=== PATIENT | female | born 1950 | race Caucasian/White ===

== ENCOUNTER 2019-10-23 09:06 | Emergency (ER) | payer MEDICARE, OTHER, SELFPAY ==
[2019-10-23 11:07] VITALS: BP 138/96; PULSE 67; RESP 16; TEMP 36.4; O2SAT 96
--- NOTE | 2019-10-23 12:01 | ED.GENADULT ---
HPI - General Adult General Chief complaint: Eye Problems Stated complaint: r eye irritation Source: patient Mode of arrival: ambulatory Limitations: no limitations History of Present Illness HPI narrative: Patient presents with right eye injected and red with drainage started approximately 2 to 3 days ago currently does not wear contacts no foreign body sensation it is red and non itchy has tried [id number] antihistamine eyedrops with no relief. Currently there is no nasal discharge no sinus congestion or pressure no shortness of breath no fever or chills. Onset (ago): day(s) Location: eyes and left Severity: mild Related Data Home Medications Medication Instructions Recorded Confirmed amlodipine 5 mg PO DAILY 10/23/19 10/23/19 Allergies Allergy/AdvReac Type Severity Reaction Status Date / Time meperidine Allergy Severe NAUSEA AND Verified 06/29/17 06:30 VOMITING lisinopril Allergy Unknown Verified 09/23/17 11:32 Review of Systems Review of Systems: All systems reviewed & are unremarkable except as noted in HPI and below PMFSH Past Medical History Medical History Essential (primary) hypertension Sleep apnea, unspecified Urge incontinence Family History Family History Sibling Family history of thyroid disease Father Acute myocardial infarction Mother Family history of Alzheimer's disease Social History Social History Smoking status: Former smoker Smoking end date: 08/17/82 Alcohol intake: current Exam Const: General: no acute distress and alert Orientation/consciousness: patient oriented x3 HENMT: Head: normal to inspection Eyes: Conjunctivae: conjunctivae normal ( Right conjunctiva is injected with yellow discharge) Pupils: Equal, round and reactive pupils present Neck: Neck: normal visual inspection Chest: Chest palpation & inspection: normal inspection of the chest Resp: Effort & Inspection: normal respiratory effort Cardio: Rate: regular rate Rhythm: regular rhythm GI: Inspection: distended Skin: General skin exam: normal color Rashes: no rashes Neuro: General: patient oriented x3, moves all extremities and no meningeal signs Extrem: General: normal to inspection Psych: Mental Status: mental status grossly normal Course Vital Signs Vital signs: Vital Signs Temperature 36.4 C 10/23/19 11:07 Pulse Rate 67 10/23/19 11:07 Respiratory Rate 16 10/23/19 11:07 Blood Pressure 138/96 H 10/23/19 11:07 Pulse Oximetry 96 10/23/19 11:07 Temperature 36.4 C 10/23/19 11:07 Pulse Rate 67 10/23/19 11:07 Respiratory Rate 16 10/23/19 11:07 Blood Pressure 138/96 H 10/23/19 11:07 Pulse Oximetry 96 10/23/19 11:07 Medical Decision Making Vital Signs Vital Signs: Vital Signs Temperature 36.4 C 10/23/19 11:07 Pulse Rate 67 10/23/19 11:07 Respiratory Rate 16 10/23/19 11:07 Blood Pressure 138/96 H 10/23/19 11:07 Pulse Oximetry 96 10/23/19 11:07 Temperature 36.4 C 10/23/19 11:07 Pulse Rate 67 10/23/19 11:07 Respiratory Rate 16 10/23/19 11:07 Blood Pressure 138/96 H 10/23/19 11:07 Pulse Oximetry 96 10/23/19 11:07 Critical Care Time Critical Care Time Critical Care Time: No Discharge Plan Discharge Clinical Impression: Bacterial conjunctivitis Patient Disposition: Home, Self-Care Condition: Stable Instructions: Antibiotic Form, Conjunctivitis (ED) Prescriptions: New ciprofloxacin HCl 0.3 % drops 2 drop RIGHTEYE TID 7 Days Qty: 5 RF: 0 No Action amlodipine 5 mg tablet 5 mg PO DAILY RF: 0 Follow-up/Referrals: Dax Gagnon MD [Primary Care Provider] - Time of Disposition: 12:12
[2019-10-23] MEDS: NEOMYCIN/POLYMYXIN/DEXAMETH OP SUSP 5 ML BTL 1 DROP (12:24)
[2019-10-23 12:26] VITALS: RESP 16
--- NOTE | 2019-10-23 17:08 | PC.NURSE ---
RX CALLED TO [facility] IN [place] FOR PATIENT CONVENIENCE
== END 2019-10-23 12:28 | disposition home or self-care (01) ==
PROVIDERS: Emergency Provider Emergency Medicine; PCP Family Medicine
DX: H10.89 Other conjunctivitis (principal); I10 Essential (primary) hypertension; Z87.891 Personal history of nicotine dependence
CPT/HCPCS: 99283; A9270

== ENCOUNTER 2022-03-05 09:19 | Outpatient (CLI) | payer MEDICARE, SELFPAY ==
[2022-03-05 09:52] LABS: Basophils Absolute Auto 0.1 K/mm3 (0.0-0.1); Basophils Percent Auto 1.2 % (0.2-1.2); Eosinophils Absolute Auto 0.2 K/mm3 (0-0.3); Eosinophils Percent Auto 4.2 % (0-4.4); Hematocrit 44.3 % (37.0-47.0); Immature Granulocyte Absolute 0.02 K/mm3 (0.00-0.031); Immature Granulocyte Percent A 0.5 % (0-0.5); Lymphocytes Absolute Auto 1.17 K/mm3 (0.9-3.2); Lymphocytes Percent Auto 27.3 % (18.3-44.2); Mean Corpuscular HGB Conc 31.6 g/dl (32-36); Mean Corpuscular Hemoglobin 28.6 pg (26-34); Mean Corpuscular Volume 90.6 fl (80-100); Mean Platelet Volume 9.7 fl (7.4-10.4); Monocytes Absolute Auto 0.5 K/mm3 (0.1-0.6); Monocytes Percent Auto 12.1 % (2.6-8.5); Neutrophils Absolute Auto 2.3 K/mm3 (1.3-6.7); Neutrophils Percent Auto 54.7 % (45.5-73.1); Platelet Count Result 309 k/mm3 (150-375); Red Blood Count 4.89 M/mm3 (4.2-5.4); Red Cell Distribution Width 12.8 % (11.5-14.5); White Blood Count 4.3 K/mm3 (4.5-10.0)
[2022-03-05 10:00] LABS: Alanine Aminotransferase 28 U/L (6-35); Albumin Level 4.4 g/dL (3.5-5.1); Alkaline Phosphatase 84 U/L (38-126); Anion Gap 5 mmol/L (8-16); Aspartate Amino Transferase 29 U/L (14-36); Bilirubin,Total 0.7 mg/dL (0.2-1.3); Blood Urea Nitrogen 15 mg/dL (7-17); Calcium 9.2 mg/dL (8.4-10.2); Carbon Dioxide 28 mmol/L (22-30); Chloride 106 mmol/L (98-107); Cholesterol 257 mg/dL (0-200); Estimated Glomerular Filt Rate 54; Glucose 92 mg/dL (65-110); HDL Direct 62 mg/dL; Potassium 4.5 mmol/L (3.4-5.0); Sodium 139 mmol/L (137-145); Triglycerides 73 mg/dL (<150)
[2022-03-05 10:11] LABS: LDL Cholesterol Direct 135 mg/dL
== END 2022-03-05 09:20 | disposition home or self-care (01) ==
PROVIDERS: PCP Family Medicine; Visit Provider Physician Assistant
DX: Z79.899 Other long term (current) drug therapy (principal)
CPT/HCPCS: 36415; 80053; 80061; 84443; 85025

== ENCOUNTER 2022-12-03 08:46 | Outpatient (CLI) | payer MEDICARE, SELFPAY ==
--- NOTE | ~2022-12-03 | DEXA_ITS ---
Bone Density Report Name: JUS CARDOZO Age: 72 Sex: Female Ethnicity: White Date of : 1950 Indication: postmenopausal; screening for osteoporosis; height loss; hysterectomy; Referring Provider: JUSTYN VERGARA Study: Bone densitometry was performed. Exam Date: December 03, 2022 Accession number: [id number] Bone Density: Region BMD T-score Z-score Classification AP Spine(L1-L4) 0.822 -2.0 0.3 Osteopenia Femoral Neck (Left) 0.710 -1.3 0.8 Osteopenia Total Hip (Left) 0.865 -0.6 1.1 Normal Femoral Neck (Right) 0.744 -0.9 1.1 Normal Total Hip (Right) 0.820 -1.0 0.8 Normal Total Hip Mean 0.842 -0.8 1.0 Normal World Health Organization criteria for BMD impression classify patients as: Normal (T-score at or above -1.0), Osteopenia (T-score between -1.0 and -2.5), or Osteoporosis (T-score at or below -2.5). 10-year Fracture Risk(1): Major Osteoporotic Fracture 10% Hip Fracture 1.7% Reported Risk Factors: [place] (), Neck BMD=0.710, BMI=26.8 (1) FRAX(R) Version 3.08. Fracture probability calculated for an untreated patient. Fracture probability may be lower if the patient has received treatment. Clinical Information Provided by Patient: Has the following medical conditions: Hysterectomy Patient maximum height was 62 Menopause Age: 48 Drinks caffeinated beverages Onset of menses at age 12 Number of children 4 Impression: The patient has low bone mass, based on the Total Spine T-score. The patient has an estimated ten-year risk of hip fracture of 1.7% and an estimated ten-year risk of major fracture of 10%, based on the WHO FRAX algorithm. Discussion: BONE DENSITY IS LOW AT ONE OR MORE SKELETAL SITES. This patient's lowest T-score is low at one or more skeletal sites. It meets the World Health Organization's (WHO) criteria for ?low bone mass? (T-score between -1.0 and -2.5). The patient's 10-year risk of fracture as calculated by FRAX is less than the threshold where pharmacological therapy is recommended by the National Osteoporosis Foundation (NOF). However, all treatment decisions require clinical judgment and consideration of individual patient factors, including patient preferences, comorbidities, previous drug use, risk factors not captured in the FRAX model (e.g., frailty, falls, vitamin D deficiency, increased bone turnover, interval significant decline in bone density) and possible under or overestimation of fracture risk by FRAX. The patient should follow a healthful lifestyle (good nutrition with adequate calcium and vitamin D, and appropriate weight-bearing exercise). Follow-Up: Consider repeating this study in 2 to 3 years to reassess this patient's status, or sooner if there is some new clinical indication. Reported by: [facility] on 12/03/2022 9:16:00 A
--- NOTE | ~2022-12-03 | MM_ITS ---
EXAMINATION: [facility] HISTORY: Screening mammogram TECHNIQUE: Craniocaudal and mediolateral oblique 3-D tomosynthesis images were obtained and synthetic 2-D images were generated. CAD analysis was submitted and interpreted. COMPARISON: 09/09/2017, 09/18/2015, 08/02/2013, 07/26/2013 BREAST PARENCHYMAL COMPOSITION: There are scattered areas of fibroglandular density. FINDINGS: No suspicious mass, calcification, or architectural distortion are identified in either destini ast to suggest malignancy. There has been no suspicious interval change. IMPRESSION: 1. No mammographic evidence of malignancy. 2. Recommend routine screening mammography in one year. BI-RADS Category 1: Negative Reviewed, dictated and finalized at location A.
== END 2022-12-03 08:47 | disposition home or self-care (01) ==
PROVIDERS: PCP Family Medicine; Visit Provider Family Medicine
DX: Z12.31 Encounter for screening mammogram for malignant neoplasm of breast (principal); Z78.0 Asymptomatic menopausal state; M85.89 Other specified disorders of bone density and structure, multiple sites
CPT/HCPCS: 77063; 77067; 77080

== ENCOUNTER 2024-10-21 11:39 | Outpatient (CLI) | payer MEDICARE, OTHER, SELFPAY ==
--- OUTSIDE RECORDS SUMMARY | 2024-10-21 12:30 | XMS_ITS | Clinical Summary ---
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 Gender Identity Not on file Sexual Orientation Not on file Plan of Treatment Health Maintenance Due Date Last Done Comments Depression Screening 1950 Fall Risk Assessment 1950 Hepatitis C Screening 1950 Osteoporosis Screening-Bone Density Scan 1950 Hepatitis B Screening 1966 Well Visit 65+ 2013 DTaP/Tdap/Td Vaccine (1 - Tdap) 09/24/2017 8 Covid-19 Vaccine (2023-2 5 season) 2024 01/19/2022, 07/31/2021, 10/25/2020, Additional history exists Influenza Vaccine (#1) 2024 06/01/2020 Zoster Vaccine Completed 09/02/2018, 06/03/2018 Pneumococcal vaccine 65+ Completed 06/28/2020, 02/2018 Insurance * Guarantor: Franny Duran Account Type Relation to Patient Date of Phone Billing Address Personal/Family Self 1950 [id number] [place] [address] MEDICARE COMMERCIAL GENERIC Care Teams Roadway Designer Relationship Specialty Start Date End Date Dax Gagnon MD PCP - General Family Medicine 02/13/22
--- OUTSIDE RECORDS SUMMARY | 2024-10-21 12:30 | XMS_ITS | Referral Summary ---
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
[2024-10-21 14:24] LABS: Alanine Aminotransferase 23 U/L (6-35); Albumin Level 4.4 g/dL (3.5-5.1); Alkaline Phosphatase 99 U/L (38-126); Anion Gap 9 mmol/L (4-12); Aspartate Amino Transferase 42 U/L (14-36); Bilirubin,Total 0.5 mg/dL (0.2-1.3); Blood Urea Nitrogen 20 mg/dL (7-17); Calcium 9.3 mg/dL (8.4-10.2); Carbon Dioxide 27 mmol/L (22-30); Chloride 104 mmol/L (98-107); Estimated Glomerular Filt Rate > 60; Glucose 95 mg/dL (65-110); Potassium 4.3 mmol/L (3.4-5.0); Sodium 140 mmol/L (137-145)
[2024-10-21 15:21] LABS: Vitamin D 25 Hydroxy 52.1 ng/mL
== END 2024-10-21 11:40 | disposition home or self-care (01) ==
LOC: ANHGOSHLAB 11:40
PROVIDERS: PCP Family Medicine; Visit Provider Family Medicine
DX: M85.80 Other specified disorders of bone density and structure, unspecified site (principal); I10 Essential (primary) hypertension; Z78.0 Asymptomatic menopausal state
CPT/HCPCS: 36415; 80053; 82306

== ENCOUNTER 2024-11-10 13:40 | Emergency (ER) | payer MEDICARE, OTHER, SELFPAY ==
--- NOTE | ~2024-11-10 | XR_ITS ---
EXAMINATION: XR chest 2V 11/10/2024 14:03 INDICATION: Cough and shortness of breath PROCEDURE: 2 view chest COMPARISON: No prior studies for comparison. FINDINGS: The lungs are clear. The cardiomediastinal silhouette is within normal limits. There are no pleural effusions. There is no pneumothorax suspected. IMPRESSION: 1: NO ACUTE CARDIOPULMONARY DISEASE. Reviewed, dictated and finalized at location A.
--- NOTE | 2024-11-10 13:49 | ED_ITS ---
HPI - URI/Sore Throat General Chief Complaint: Upper Respiratory Infection Stated Complaint: CONGESTION/FEVER/HEADACHE Time Seen by Provider: 11/10/24 13:49 Source: patient Mode of arrival: ambulatory Limitations: no limitations History of Present Illness HPI Narrative: Franny is a 74-year-old female patient presenting to the clinic today with complaints of fever, headache, cough, and congestion x5 days. States she has felt feverish thinks she is around 102.5F. Is coughing up some yellow phlegm. She is a former smoker. No history of asthma or COPD. Related Data Allergies Allergy/AdvReac Type Severity Reaction Status Date / Time meperidine Allergy Severe NAUSEA AND Verified 11/10/24 13:57 VOMITING lisinopril Allergy Unknown unknown Verified 11/10/24 13:57 Review of Systems Review of Systems: Pertinent positives per HPI. Patient denies any fever, chills, rash, headache, visual changes, dizziness, chest pain, palpitations, nausea, vomiting, diarrhea, constipation, abdominal pain, or any urinary issues. PMFSH Past Medical History Medical History Hepatitis C antibody test negative (07/02/20) Essential (primary) hypertension Sleep apnea, unspecified Urge incontinence Surgical History Surgical History History of hysterectomy for benign disease Family History Family History Sibling Family history of thyroid disease Father Acute myocardial infarction Mother Family history of Alzheimer's disease Social History Social History Smoking status: Former smoker Smoking end date: 08/17/82 Alcohol intake: current Comments At the time of my signature, I reviewed and agree with the nursing past medical, surgical, social, and family history. There is no relevant family history pertinent to the patient complaint. Exam Narrative: General: Well-developed, well nourished, in no apparent distress Head: Normocephalic, atraumatic Eyes: Pupils equally round and reactive to light bilaterally, EOM intact, sclera and conjunctive clear, no discharge, lids normal Ears: TMs intact and clear, ear canals clear, no drainage, grossly hearing normal. Nose: Nares patent, clear nasal discharge, no inflammation, no sinus tenderness. Mouth: Oral pharynx without lesions or masses, good dentition, MMM. Neck: Supple, trachea midline, no enlargement of anterior or posterior cervical nodes, no thyroid masses or goiter palpable. Cardio: Regular rate and rhythm, s1 and s2 normal, no murmur appreciated. Resp: Diminished in the bases otherwise clear, no rhonchi, rales, wheezing or rubs Course Course Emergency Course: Portions of this record may have been created with voice recognition software. Level of Care: Express Care Visit Vital Signs Vital signs: Vital Signs Temperature 36.2 C L 11/10/24 13:51 Pulse Rate 96 11/10/24 13:51 Respiratory Rate 18 11/10/24 13:51 Blood Pressure 135/94 H 11/10/24 13:51 Pulse Oximetry 93 11/10/24 13:51 Oxygen Delivery Room Air 11/10/24 13:51 Temperature 36.2 C L 11/10/24 13:51 Pulse Rate 96 11/10/24 13:51 Respiratory Rate 18 11/10/24 13:51 Blood Pressure 135/94 H 11/10/24 13:51 Pulse Oximetry 93 11/10/24 13:51 Oxygen Delivery Room Air 11/10/24 13:51 Vital signs reviewed MDM - URI/Sore Throat MDM Narrative Medical decision making narrative: At the time of visit patient is resting comfortably on the exam table. Patient appears to be nontoxic. Labs: COVID and influenza testing were negative in the clinic today. Diagnostics: Chest x-rays negative for any acute cardiopulmonary process. Plan: I suspect patient has URI/bronchitis. Prescription for prednisone, azithromycin, and albuterol inhaler was sent to pharmacy. Supportive measures were discussed with the patient and they voiced understanding discharge instructions and agrees to treatment plan. Return precautions reviewed Differential Diagnosis Differential diagnosis: Likely upper respiratory infection, otitis media, sinusitis, viral infection, bronchitis, influenza, pharyngitis and other (COVID) Lab Data Labs: Lab Results 11/10/24 Range/Units 14:17 POC Influenza A Ag Negative (Negative) POC Influenza B Ag Negative (Negative) POC SARS CoV-2 Ag Negative (Negative) Imaging Data Radiologist's impression: ITS Impressions Chest X-Ray 11/10/24 14:03 IMPRESSION: 1: NO ACUTE CARDIOPULMONARY DISEASE. Discharge Plan Discharge Clinical Impression: Upper respiratory infection with cough and congestion, Bronchitis Patient Disposition: Home, Self-Care Condition: Stable Instructions: Antibiotic Form, Acute Bronchitis (ED), Cold Symptoms (ED) Additional Instructions: COVID and influenza testing was negative in the clinic today. Chest x-rays negative for any acute cardiopulmonary process. Take prescription medications only as prescribed-prednisone, azithromycin, and albuterol inhaler Increase fluids and stay well hydrated Tylenol/motrin for pain/fever Flonase and OTC antihistamines as directed Vicks vapor rub to open sinuses Sinus rinses for congestion Cepacol spray, cough drops, throat lozenges, warm tea with honey/lemon, gargle salt water to soothe throat BRAT diet for diarrhea Clear liquids x 24 hours then advance as tolerated for nausea/vomiting Go to the ED if you develop a worsening in your condition- high fever not controlled by Tylenol or Motrin, dehydration, weakness, lethargy, shortness of breath, or chest pain. Follow up with your PCP in 3-5 days if symptoms persist. Patient Language: Mongolian Prescriptions: New prednisone 20 mg tablet 40 mg PO DAILY 5 Days Qty: 10 0RF azithromycin 250 mg tablet See Rx Instructions .ROUTE .COMPLEX Qty: 6 0RF Rx Instructions: For 250 mg dose pack: take 500 mg today (day 1), then 250 mg for 4 days (days 2-5) albuterol sulfate 90 mcg/actuation HFA aerosol inhaler 2 puff inhalation Q4-6H PRN (Reason: shortness of breath or wheezing) 30 Days Qty: 8.5 0RF No Action amlodipine [Norvasc] 2.5 mg tablet 5 mg PO DAILY Qty: 180 1RF irbesartan 75 mg tablet 75 mg PO DAILY Qty: 90 1RF Follow-up/Referrals: Dax Gagnon MD [Primary Care Provider] - Time of Disposition: 14:16 Quality NIHSS Nursing Documentation ED NIHSS nursing documentation: reviewed/agree
[2024-11-10 13:51] VITALS: BP 135/94; PULSE 96; RESP 18; TEMP 36.2; O2SAT 93
[2024-11-10 14:18] LABS: EDCOVIDSCREEN Negative (Negative); EDINFLUASCREEN Negative (Negative); EDINFLUBSCREEN Negative (Negative)
--- NOTE | 2024-11-10 14:45 | PC.NURSE ---
iv was a mistaken entry
== END 2024-11-10 14:19 | disposition home or self-care (01) ==
PROVIDERS: Emergency Provider Nurse Practitioner Family; PCP Family Medicine
DX: J06.9 Acute upper respiratory infection, unspecified (principal); R05.9 Cough, unspecified; J40 Bronchitis, not specified as acute or chronic; Z20.822 Contact with and (suspected) exposure to COVID-19; I10 Essential (primary) hypertension; Z87.891 Personal history of nicotine dependence
CPT/HCPCS: 71046; 87426; 87804; 99213; G0463